=== PATIENT | female | born 1935 | race Caucasian/White ===

== ENCOUNTER 2021-03-04 08:10 | Emergency (ER) | payer MEDICARE ==
[~2021-03-04] VITALS: Ht 162.6 cm; Wt 99.8 kg
[2021-03-04 08:20] VITALS: BP_SYST 154
--- NOTE | 2021-03-04 08:20 | NUR ---
Patient to ER bed 5 to gown for evaluation. Side rails up. Report given to Gianluca PETER.
--- NOTE | 2021-03-04 08:21 | NUR ---
ER at bedside examining patient.
--- NOTE | 2021-03-04 08:27 | NUR ---
Contact for pt is Nellie
[2021-03-04] MEDS ORDERED: ACETAMINOPHEN 325 MG TABLET PO ONE (08:30)
--- NOTE | 2021-03-04 09:30 | NUR ---
PT [facility] CALLED TO UPDATE PATIENT CHART AND ANY INFORMATION NEEDED. NAME IS ERLINDA AU, TO BE CALLED TO UPDATE FAMILY. [phone]. PER [facility], PATIENT WAS RECENTLY TREATED AT [facility] FOR MILD CONFUSION DUE TO UTI. ALSO, [facility] STATED PT HAS CHRONIC KNEE AND BACK PAIN. PT AWAITING DISPOSITION AND FOLLOW-UP
[2021-03-04] MEDS ORDERED: ACET325T53 PO (09:33)
--- NOTE | 2021-03-04 10:30 | NUR ---
PT TO BE DISCHARGED BACK TO FACILITY PER ED MED. PT IS STABLE, NAD, VSS, AWAITING BLS TRANSPORT.
[2021-03-04 11:44] VITALS: BP_SYST 151
== END 2021-03-04 11:44 | disposition home or self-care (01) ==
LOC: SED 08:10
DX: S80.01XA Contusion of right knee, initial encounter (principal); I10 Essential (primary) hypertension; E78.00 Pure hypercholesterolemia, unspecified; E11.9 Type 2 diabetes mellitus without complications; Z88.8 Allergy status to other drugs, medicaments and biological substances; Z79.899 Other long term (current) drug therapy; W18.39XA Other fall on same level, initial encounter; Y93.89 Activity, other specified; Y92.89 Other specified places as the place of occurrence of the external cause; Y99.8 Other external cause status
CPT/HCPCS: 72170-TC; 73560-TC; 82962; 99285